=== PATIENT | female | born 1940 | race African-American/Black ===

== ENCOUNTER 2018-05-21 02:38 | Inpatient (IN) | payer MEDICARE, MEDICAID ==
[~2018-05-21] VITALS: Ht 152.4 cm; Wt 62.6 kg
[2018-05-21] VITALS (8 sets, daily range): BP systolic 146–194; BP diastolic 74–104
[~2018-05-21 02:38] MED LIST: ATOR10TA69; BENA40TA66 PO; BENADRYL; BENAZEPRIL; CLARITIN; COLACE; COR12 PO; COREG; DIAZ5TAB4; DOCU-138 PO; MECL-109 PO; MECL25TA3 PO; METO10TA3 PO; OMEP20CA4 PO; OXYC-23; PERCOCET; PREG50CA PO; PRO AIR; SORB PO; TRAM50TA94 PO
[2018-05-21] MEDS ORDERED: ALBUTEROL (0.083%) 2.5MG/3ML NEB HHN STA (03:02)
[2018-05-21 03:35] LABS: CHLORIDE 115 mEq/L (98-107)
[2018-05-21 03:44] LABS: BG BASE EXCESS -3.8 mmol/L (-2.0-2.0); BG CARBOXYHEMOGLOBIN 0.1 % (0.5-1.5); BG DEOXYHEMOGLOBIN 1.7 % (0.0-5.0); BG FRACTION INSPIRED OXYGEN 28; BG HCO3 ACT 20.3 mmol/L (22.0-26.0); BG METHEMOGLOBIN 0.1 % (0.0-1.5); BG OXYGEN SATURATION 98.3 % (92.0-98.5); BG OXYHEMOGLOBIN 98.1 % (94.0-97.0); BG PCO2 33.3 mmHg (35.0-45.0); BG PH 7.403 (7.350-7.450); BG PO2 119.4 mmHg (75.0-100.0); BG SAMPLE SITE RIGHT RADIAL; BG TOTAL HEMOGLOBIN 9.6 g/dL (12.0-18.0); BG VENT MODE NASAL CANNULA
[2018-05-21 03:52] LABS: HEMATOCRIT. 28.6 % (36.0-48.0); HEMOGLOBIN. 9.1 g/dL (12.0-16.0); MEAN CORPUSCULAR HEMOGLOBIN 29.8 pg (28.0-32.0); MEAN CORPUSCULAR VOLUME 94.1 fL (81.0-99.0); MEAN PLATELET VOLUME 9.5 fl (7.4-10.4); PLATELET 183 x1000/uL (130-400); RED BLOOD CELL COUNT 3.04 mill/uL (4.2-5.4); RED CELL DISTRIBUTION WIDTH 16.4 % (11.6-14.6)
[2018-05-21 04:10] LABS: PLATELET ESTIMATE NORMAL
[2018-05-21] MEDS ORDERED: ENALAPRIL 2.5MG/2ML VIAL 2ML IV ONE (04:15)
[2018-05-21] MEDS ORDERED: FUROSEMIDE 40MG/4ML VIAL IVP ONE (04:15)
[2018-05-21] MEDS ORDERED: IPRATROPIUM/ALBUTEROL 0.5-3(2.5)MG/3ML NEB HHN PRN (07:15)
[2018-05-21] MEDS: CLONIDINE 0.1MG TABLET PO PRN (07:38)
[2018-05-21] MEDS ORDERED: DIAZ10TA4 PO (08:06)
[2018-05-21] MEDS ORDERED: ONDA4TAB5 PO (08:12)
[2018-05-21] MEDS ORDERED: CHOL100044 GT (08:12)
[2018-05-21] MEDS ORDERED: CALC300T4 PO (08:12)
[2018-05-21] MEDS ORDERED: OXYC-515 PO (08:13)
[2018-05-21] MEDS ORDERED: LORA10TA7 PO (08:14)
[2018-05-21] MEDS ORDERED: DEXL60CA3 PO (08:15)
[2018-05-21] MEDS ORDERED: CALC1TAB17 PO (08:20)
[2018-05-21] MEDS: FUROSEMIDE 40MG/4ML VIAL IVP SCH (09:21)
[2018-05-21] MEDS: ENOXAPARIN 30MG/0.3ML SYR SUBCUT SCH (09:21)
[2018-05-21] MEDS: ASPIRIN 81MG TABLET PO SCH (12:00)
[2018-05-21] MEDS: ATORVASTATIN CALCIUM 10MG TABLET PO SCH (20:31)
[2018-05-21] MEDS: AMLODIPINE 2.5MG TABLET PO SCH (20:31)
[2018-05-21] MEDS: CARVEDILOL 12.5MG TABLET PO SCH (20:31)
[2018-05-21] MEDS: HYDROCODONE/ACETAMINOPHEN 5/325MG TABLET PO PRN (20:37)
[2018-05-22] VITALS (13 sets, daily range): BP systolic 91–175; BP diastolic 45–86
[2018-05-22] MEDS: CLONIDINE 0.1MG TABLET PO PRN (03:04)
[2018-05-22 06:07] LABS: BASOPHILS % 0.3 % (0.0-2.0); EOSINOPHILS % 0.8 % (0.0-5.0); HEMATOCRIT. 28.8 % (36.0-48.0); HEMOGLOBIN. 9.4 g/dL (12.0-16.0); MEAN CORPUSCULAR HEMOGLOBIN 30.2 pg (28.0-32.0); MEAN CORPUSCULAR VOLUME 92.7 fL (81.0-99.0); MEAN PLATELET VOLUME 9.5 fl (7.4-10.4); MONOCYTES % 12.8 % (2.0-8.0); NEUTROPHILS % 64.1 % (40.0-76.0); PLATELET 166 x1000/uL (130-400)
[2018-05-22] MEDS: PANTOPRAZOLE 40MG DR TABLET PO SCH (06:18)
[2018-05-22 06:31] LABS: PHOSPHORUS 3.4 mg/dL (2.5-4.9)
[2018-05-22] MEDS: ASPIRIN 81MG TABLET PO SCH (08:58)
[2018-05-22] MEDS: AMLODIPINE 2.5MG TABLET PO SCH ×2 (08:58→21:17)
[2018-05-22] MEDS: ENOXAPARIN 30MG/0.3ML SYR SUBCUT SCH (08:59)
[2018-05-22] MEDS: FUROSEMIDE 40MG/4ML VIAL IVP SCH (08:59)
[2018-05-22] MEDS: CARVEDILOL 12.5MG TABLET PO SCH ×2 (08:59→21:16)
[2018-05-22] MEDS: BENAZEPRIL 10MG TABLET PO SCH (10:54)
[2018-05-22] MEDS: POTASSIUM CHLORIDE 20MEQ TABLET SR PO SCH (10:54)
[2018-05-22] MEDS: HYDROCODONE/ACETAMINOPHEN 5/325MG TABLET PO PRN (20:07)
[2018-05-22] MEDS: ATORVASTATIN CALCIUM 10MG TABLET PO SCH (21:16)
[2018-05-23] VITALS (19 sets, daily range): BP systolic 73–135; BP diastolic 36–75
[2018-05-23] MEDS: HYDROCODONE/ACETAMINOPHEN 5/325MG TABLET PO PRN ×2 (01:58→10:41)
[2018-05-23] MEDS: PANTOPRAZOLE 40MG DR TABLET PO SCH (06:17)
[2018-05-23 06:50] LABS: HEMATOCRIT. 30.7 % (36.0-48.0); HEMOGLOBIN. 10.1 g/dL (12.0-16.0); MEAN CORPUSCULAR HEMOGLOBIN 30.4 pg (28.0-32.0); MEAN CORPUSCULAR VOLUME 92.6 fL (81.0-99.0); MEAN PLATELET VOLUME 9.8 fl (7.4-10.4); PLATELET 183 x1000/uL (130-400); RED BLOOD CELL COUNT 3.32 mill/uL (4.2-5.4); RED CELL DISTRIBUTION WIDTH 15.9 % (11.6-14.6)
[2018-05-23] MEDS: ASPIRIN 81MG TABLET PO SCH (08:23)
[2018-05-23] MEDS: POTASSIUM CHLORIDE 20MEQ TABLET SR PO SCH (08:24)
[2018-05-23] MEDS: BENAZEPRIL 10MG TABLET PO SCH ×2 (08:24→09:00)
[2018-05-23] MEDS: AMLODIPINE 2.5MG TABLET PO SCH (08:24)
[2018-05-23] MEDS: ENOXAPARIN 30MG/0.3ML SYR SUBCUT SCH (08:25)
[2018-05-23] MEDS: CARVEDILOL 12.5MG TABLET PO SCH (08:25)
[2018-05-23] MEDS: FUROSEMIDE 40MG/4ML VIAL IVP SCH (08:25)
[2018-05-23] MEDS ORDERED: SODIUM CHLORIDE 0.9% 250 ML IV SCH (11:30)
[2018-05-23] MEDS ORDERED: ACETAMINOPHEN 500MG TABLET PO PRN (14:45)
[2018-05-23] MEDS: SODIUM CHLORIDE 0.45% 1,000 ML IV SCH (16:08)
[2018-05-23 17:45] LABS: PLATELET ESTIMATE NORMAL
[2018-05-23] MEDS: ATORVASTATIN CALCIUM 10MG TABLET PO SCH (21:02)
[2018-05-24] VITALS (13 sets, daily range): BP systolic 98–143; BP diastolic 43–82
[2018-05-24] MEDS: SODIUM CHLORIDE 0.45% 1,000 ML IV SCH ×2 (04:16→16:48)
[2018-05-24] MEDS: PANTOPRAZOLE 40MG DR TABLET PO SCH (06:10)
[2018-05-24 07:21] LABS: HEMATOCRIT. 27.2 % (36.0-48.0); MEAN CORPUSCULAR HEMOGLOBIN 30.9 pg (28.0-32.0); MEAN CORPUSCULAR VOLUME 93.5 fL (81.0-99.0); MEAN PLATELET VOLUME 9.9 fl (7.4-10.4); PLATELET 144 x1000/uL (130-400); RED BLOOD CELL COUNT 2.91 mill/uL (4.2-5.4); RED CELL DISTRIBUTION WIDTH 15.7 % (11.6-14.6)
[2018-05-24 07:38] LABS: CHLORIDE 106 mEq/L (98-107)
[2018-05-24] MEDS: POTASSIUM CHLORIDE 20MEQ TABLET SR PO SCH (08:55)
[2018-05-24] MEDS: ENOXAPARIN 30MG/0.3ML SYR SUBCUT SCH (08:55)
[2018-05-24] MEDS: ASPIRIN 81MG TABLET PO SCH (08:55)
[2018-05-24 12:20] LABS: PLATELET ESTIMATE NORMAL
[2018-05-24] MEDS: OXYCODONE HCL/ACETAMINOPHEN 5/325MG TABLET PO PRN ×3 (12:46→23:18)
[2018-05-24] MEDS ORDERED: LAMOTRIGINE 25MG TABLET PO SCH (17:00)
[2018-05-24] MEDS: ATORVASTATIN CALCIUM 10MG TABLET PO SCH (21:35)
[2018-05-24] MEDS: CARVEDILOL 3.125 MG TABLET PO SCH (21:36)
[2018-05-25] VITALS (8 sets, daily range): BP systolic 101–160; BP diastolic 48–78
[2018-05-25] MEDS: SODIUM CHLORIDE 0.45% 1,000 ML IV SCH ×2 (01:46→20:40)
[2018-05-25 07:25] LABS: EOSINOPHILS % 6.2 % (0.0-5.0); HEMOGLOBIN. 9.4 g/dL (12.0-16.0); LYMPHOCYTES % 31.3 % (20.0-50.0); MEAN CORPUSCULAR HEMOGLOBIN 30.4 pg (28.0-32.0); MEAN CORPUSCULAR VOLUME 93.8 fL (81.0-99.0); MEAN PLATELET VOLUME 9.8 fl (7.4-10.4); MONOCYTES % 13.8 % (2.0-8.0); NEUTROPHILS % 46.7 % (40.0-76.0); PLATELET 154 x1000/uL (130-400)
[2018-05-25] MEDS: OXYCODONE HCL/ACETAMINOPHEN 5/325MG TABLET PO PRN ×3 (08:17→20:39)
[2018-05-25] MEDS: ASPIRIN 81MG TABLET PO SCH (08:22)
[2018-05-25] MEDS: ENOXAPARIN 30MG/0.3ML SYR SUBCUT SCH (08:22)
[2018-05-25] MEDS: AMLODIPINE 2.5MG TABLET PO SCH (08:22)
[2018-05-25] MEDS: FAMOTIDINE 20MG TABLET PO SCH (08:23)
[2018-05-25] MEDS: CARVEDILOL 3.125 MG TABLET PO SCH ×2 (08:23→20:39)
[2018-05-25] MEDS: BENAZEPRIL 5MG TABLET PO SCH (09:00)
[2018-05-25 11:04] LABS: CHLORIDE 111 mEq/L (98-107)
[2018-05-25] MEDS: ATORVASTATIN CALCIUM 10MG TABLET PO SCH (20:38)
[2018-05-26] VITALS (11 sets, daily range): BP systolic 110–160; BP diastolic 52–78
[2018-05-26] MEDS: OXYCODONE HCL/ACETAMINOPHEN 5/325MG TABLET PO PRN ×3 (02:26→14:01)
[2018-05-26 07:25] LABS: HEMATOCRIT. 27.6 % (36.0-48.0); HEMOGLOBIN. 8.8 g/dL (12.0-16.0); MEAN CORPUSCULAR HEMOGLOBIN 30.4 pg (28.0-32.0); MEAN CORPUSCULAR VOLUME 94.8 fL (81.0-99.0); PLATELET 153 x1000/uL (130-400); RED BLOOD CELL COUNT 2.91 mill/uL (4.2-5.4); RED CELL DISTRIBUTION WIDTH 16.1 % (11.6-14.6)
[2018-05-26] MEDS: FAMOTIDINE 20MG TABLET PO SCH (08:02)
[2018-05-26] MEDS: ENOXAPARIN 30MG/0.3ML SYR SUBCUT SCH (08:03)
[2018-05-26] MEDS: BENAZEPRIL 5MG TABLET PO SCH (08:03)
[2018-05-26] MEDS: ASPIRIN 81MG TABLET PO SCH (08:04)
[2018-05-26] MEDS: CARVEDILOL 3.125 MG TABLET PO SCH (08:10)
[2018-05-26] MEDS ORDERED: MAGNESIUM HYDROXIDE 400MG/5ML 30ML UDC PO NR (11:45)
[2018-05-26] MEDS ORDERED: NA PHOS,M-B/NA PHOS,DI-BA ENEMA 118ML PR NR (11:45)
[2018-05-26] MEDS: AMLODIPINE 2.5MG TABLET PO SCH (12:09)
[2018-05-26 16:23] LABS: PLATELET ESTIMATE NORMAL
== END 2018-05-26 17:44 | disposition home health service (06) | DRG 682 ==
LOC: ER 02:38 → 3WST 04:23 → EDBEDREQSVC 04:28 → EDBEDREQ 04:28 → EDBEDREQTM 04:28 → ENRESERV 06:38 → 3WST 07:10
PROVIDERS: ADMIT Internal Medicine; ATTEND Internal Medicine
PROC: 5A09357 Assistance with Respiratory Ventilation, Less than 24 Consecutive Hours, Continuous Positive Airway Pressure (ICD-10-PCS; principal; 2018-05-21)
DX: N17.9 Acute kidney failure, unspecified (principal); I50.23 Acute on chronic systolic (congestive) heart failure; E87.0 Hyperosmolality and hypernatremia; I13.0 Hypertensive heart and chronic kidney disease with heart failure and stage 1 through stage 4 chronic kidney disease, or unspecified chronic kidney disease; E46 Unspecified protein-calorie malnutrition; J98.11 Atelectasis; M19.90 Unspecified osteoarthritis, unspecified site; K21.9 Gastro-esophageal reflux disease without esophagitis; M54.5 Low back pain; M54.2 Cervicalgia; R53.81 Other malaise; I95.9 Hypotension, unspecified; E78.5 Hyperlipidemia, unspecified; D64.9 Anemia, unspecified; G89.29 Other chronic pain; M17.11 Unilateral primary osteoarthritis, right knee; N18.9 Chronic kidney disease, unspecified; Z87.891 Personal history of nicotine dependence; Z88.0 Allergy status to penicillin; Z88.6 Allergy status to analgesic agent; Z88.8 Allergy status to other drugs, medicaments and biological substances; Z79.899 Other long term (current) drug therapy; Z68.27 Body mass index [BMI] 27.0-27.9, adult
CPT/HCPCS: 36415; 36600; 71045; 76770; 80048; 82375; 82805; 83735; 83880; 84100; 84484; 85379; 93005; 93306; 93970; 94640; 96374; 96375; 97116; 97163; 97166; 99291; J1650; J1940; J3490; J7050; J7611; J7620

== ENCOUNTER 2019-10-30 18:00 | Inpatient (IN) | payer MEDICARE, MEDICAID ==
[~2019-10-30] VITALS: Ht 157.5 cm; Wt 68.5 kg
[2019-10-30 18:00] VITALS: BP 139/62
[~2019-10-30 18:00] MED LIST changes: +ALBUL MT; +AMLO5TAB88 MT; -BENA40TA66 PO; +BENA5TAB6 MT; -BENADRYL; -BENAZEPRIL; +BISA-81 MT; +CALC1TAB17 PO; +CALC300T4 PO; -CLARITIN; -COLACE; -COREG; +DIAZ10TA4 PO; -DIAZ5TAB4; -DOCU-138 PO; +FAMO20TA8 MT; +FLUT1DIS2 INH; -MECL-109 PO; -MECL25TA3 PO; -METO10TA3 PO; +OXYC-515 PO; -PERCOCET; -PREG50CA PO; -PRO AIR; -SORB PO; -TRAM50TA94 PO
[2019-10-30] MEDS ORDERED: ONDANSETRON HCL 4MG/2ML INJ IV PRN (18:30)
[2019-10-30] MEDS ORDERED: DIPHENHYDRAMINE 25MG CAPSULE PO PRN (18:30)
[2019-10-30 19:30] VITALS: BP 129/52
[2019-10-30 20:00] VITALS: BP 129/52
[2019-10-30] MEDS: TRAMADOL 50MG TABLET PO PRN (20:38)
[2019-10-30] MEDS: TEMAZEPAM 15MG CAPSULE PO PRN (22:19)
[2019-10-30] MEDS: ACETAMINOPHEN 325MG TABLET PO PRN (22:19)
[2019-10-30] MEDS: CARVEDILOL 6.25 MG TABLET PO SCH (22:20)
[2019-10-30] MEDS: ATORVASTATIN CALCIUM 10MG TABLET PO SCH (22:35)
[2019-10-31] MEDS: IPRATROPIUM/ALBUTEROL 0.5-3(2.5)MG/3ML NEB HHN SCH ×4 (00:13→20:06)
[2019-10-31 07:47] VITALS: BP 157/66
[2019-10-31 08:00] VITALS: BP 157/66
[2019-10-31] MEDS: THIAMINE HCL 100MG TABLET PO SCH (08:35)
[2019-10-31] MEDS: FAMOTIDINE 20MG TABLET PO SCH (08:36)
[2019-10-31] MEDS: CARVEDILOL 6.25 MG TABLET PO SCH ×2 (08:36→21:50)
[2019-10-31] MEDS: BENAZEPRIL 10MG TABLET PO SCH (08:36)
[2019-10-31] MEDS: AMLODIPINE 5MG TABLET PO SCH (08:36)
[2019-10-31] MEDS: TRAMADOL 50MG TABLET PO PRN (09:46)
[2019-10-31] MEDS ORDERED: INFLUENZA VIRUS VACCINE(AFLURIA) 0.5ML SYR IM ONE (12:00)
[2019-10-31] MEDS ORDERED: PNEUMOCOCCAL 23-VAL P-SAC VAC 0.5 ML IM ONE (12:00)
[2019-10-31] MEDS: NAPROXEN 375MG TABLET PO PRN (16:30)
[2019-10-31 20:00] VITALS: BP 124/85
[2019-10-31] MEDS: ACETAMINOPHEN 325MG TABLET PO PRN (21:51)
[2019-10-31] MEDS: ATORVASTATIN CALCIUM 10MG TABLET PO SCH (21:51)
[2019-10-31] MEDS: LACTULOSE 20G/30ML UDC PO SCH (21:51)
[2019-10-31] MEDS: TEMAZEPAM 15MG CAPSULE PO PRN (21:51)
[2019-11-01] MEDS: LACTULOSE 20G/30ML UDC PO SCH ×2 (04:00)
[2019-11-01] MEDS: IPRATROPIUM/ALBUTEROL 0.5-3(2.5)MG/3ML NEB HHN SCH ×2 (08:12→16:20)
[2019-11-01] MEDS: BENAZEPRIL 10MG TABLET PO SCH (08:18)
[2019-11-01] MEDS: THIAMINE HCL 100MG TABLET PO SCH (08:18)
[2019-11-01] MEDS: CARVEDILOL 6.25 MG TABLET PO SCH ×2 (08:18→21:18)
[2019-11-01] MEDS: AMLODIPINE 5MG TABLET PO SCH (08:18)
[2019-11-01] MEDS: NAPROXEN 375MG TABLET PO PRN (08:18)
[2019-11-01] MEDS: FAMOTIDINE 20MG TABLET PO SCH (08:18)
[2019-11-01 08:22] VITALS: BP 146/68
[2019-11-01] MEDS: TRAMADOL 50MG TABLET PO PRN (15:29)
[2019-11-01 20:00] VITALS: BP 128/75
[2019-11-01] MEDS: TEMAZEPAM 15MG CAPSULE PO PRN (21:17)
[2019-11-01] MEDS: ACETAMINOPHEN 325MG TABLET PO PRN (21:18)
[2019-11-01] MEDS: ATORVASTATIN CALCIUM 10MG TABLET PO SCH (21:19)
[2019-11-02] MEDS: IPRATROPIUM/ALBUTEROL 0.5-3(2.5)MG/3ML NEB HHN SCH ×3 (01:20→18:10)
[2019-11-02] MEDS: NAPROXEN 375MG TABLET PO PRN ×2 (02:09→08:17)
[2019-11-02 06:47] LABS: HEMATOCRIT. 25.5 % (36.0-48.0); HEMOGLOBIN. 8.7 g/dL (12.0-16.0); MEAN CORPUSCULAR VOLUME 94.3 fL (81.0-99.0); MEAN PLATELET VOLUME 9.6 fl (7.4-10.4); PLATELET 156 x1000/uL (130-400); RED BLOOD CELL COUNT 2.71 mill/uL (4.2-5.4); RED CELL DISTRIBUTION WIDTH 15.8 % (11.6-14.6)
[2019-11-02 08:00] VITALS: BP 164/76
[2019-11-02] MEDS: THIAMINE HCL 100MG TABLET PO SCH (08:18)
[2019-11-02] MEDS: AMLODIPINE 5MG TABLET PO SCH (08:18)
[2019-11-02] MEDS: BENAZEPRIL 10MG TABLET PO SCH (08:18)
[2019-11-02] MEDS: FAMOTIDINE 20MG TABLET PO SCH (08:18)
[2019-11-02] MEDS: CARVEDILOL 6.25 MG TABLET PO SCH ×2 (08:19→21:43)
[2019-11-02] MEDS: BENAZEPRIL 5MG TABLET PO SCH ×2 (08:59→22:47)
[2019-11-02 13:51] LABS: NUCLEATED RED BLOOD CELLS 1 /100 WBC
[2019-11-02 13:52] LABS: PLATELET ESTIMATE NORMAL
[2019-11-02] MEDS: ACETAMINOPHEN 325MG TABLET PO PRN (18:27)
[2019-11-02 20:00] VITALS: BP 124/62
[2019-11-02] MEDS: ATORVASTATIN CALCIUM 10MG TABLET PO SCH (21:42)
[2019-11-02] MEDS: TRAMADOL 50MG TABLET PO PRN (21:43)
[2019-11-02] MEDS: TEMAZEPAM 15MG CAPSULE PO PRN (22:48)
[2019-11-03] MEDS: NAPROXEN 375MG TABLET PO PRN ×3 (02:12→20:19)
[2019-11-03] MEDS: ACETAMINOPHEN 325MG TABLET PO PRN (06:41)
[2019-11-03 08:00] VITALS: BP 123/63
[2019-11-03] MEDS: AMLODIPINE 5MG TABLET PO SCH (08:55)
[2019-11-03] MEDS: BENAZEPRIL 5MG TABLET PO SCH ×2 (08:56→20:01)
[2019-11-03] MEDS: THIAMINE HCL 100MG TABLET PO SCH (08:56)
[2019-11-03] MEDS: CARVEDILOL 6.25 MG TABLET PO SCH ×2 (08:56→20:02)
[2019-11-03] MEDS: FAMOTIDINE 20MG TABLET PO SCH (08:56)
[2019-11-03] MEDS: IPRATROPIUM/ALBUTEROL 0.5-3(2.5)MG/3ML NEB HHN SCH ×2 (09:40→22:11)
[2019-11-03 20:00] VITALS: BP 149/74
[2019-11-03] MEDS: ATORVASTATIN CALCIUM 10MG TABLET PO SCH (20:01)
[2019-11-03] MEDS: TEMAZEPAM 15MG CAPSULE PO PRN (21:27)
[2019-11-03 23:15] VITALS: BP 119/50
[2019-11-04] MEDS: NAPROXEN 375MG TABLET PO PRN ×2 (05:06→12:34)
[2019-11-04 08:00] VITALS: BP 126/64
[2019-11-04] MEDS: FAMOTIDINE 20MG TABLET PO SCH (08:49)
[2019-11-04] MEDS: BENAZEPRIL 5MG TABLET PO SCH (08:49)
[2019-11-04] MEDS: AMLODIPINE 5MG TABLET PO SCH (08:50)
[2019-11-04] MEDS: THIAMINE HCL 100MG TABLET PO SCH (08:50)
[2019-11-04] MEDS: CARVEDILOL 6.25 MG TABLET PO SCH (08:50)
[2019-11-04 09:35] VITALS: BP 126/64
== END 2019-11-04 14:50 | disposition home or self-care (01) | DRG 70 ==
PROVIDERS: ADMIT Psychiatry & Neurology Neurology; ATTEND Internal Medicine
DX: G93.41 Metabolic encephalopathy (principal); J96.90 Respiratory failure, unspecified, unspecified whether with hypoxia or hypercapnia; I50.32 Chronic diastolic (congestive) heart failure; G93.89 Other specified disorders of brain; I11.0 Hypertensive heart disease with heart failure; K21.9 Gastro-esophageal reflux disease without esophagitis; D64.9 Anemia, unspecified; E78.00 Pure hypercholesterolemia, unspecified; M19.90 Unspecified osteoarthritis, unspecified site; G89.4 Chronic pain syndrome; R26.89 Other abnormalities of gait and mobility; N28.9 Disorder of kidney and ureter, unspecified; M25.50 Pain in unspecified joint; Z60.2 Problems related to living alone; K59.00 Constipation, unspecified; Z79.891 Long term (current) use of opiate analgesic; Z79.899 Other long term (current) drug therapy; Z88.0 Allergy status to penicillin; Z88.8 Allergy status to other drugs, medicaments and biological substances; Z88.6 Allergy status to analgesic agent
CPT/HCPCS: 36415; 80048; 85025; 90686; 90732; 92523; 94640; 97110; 97116; 97162; 97166; 97530; 97535; J2405; Q0163

== ENCOUNTER 2020-04-02 03:39 | Emergency (ER) | payer MEDICARE, MEDICAID ==
[~2020-04-02] VITALS: Ht 152.4 cm; Wt 63.0 kg
[~2020-04-02 03:39] MED LIST changes: -CALC300T4 PO; -DIAZ10TA4 PO; -FAMO20TA8 MT; -FLUT1DIS2 INH; -OXYC-23; -OXYC-515 PO
[2020-04-02 04:11] VITALS: BP 176/77
[2020-04-02] MEDS ORDERED: HYDROCODONE/ACETAMINOPHEN 10/325MG TABLET PO ONE (04:15)
[2020-04-02] MEDS ORDERED: DIPHENHYDRAMINE 25MG CAPSULE PO ONE (04:30)
[2020-04-02] MEDS ORDERED: IBUPROFEN 600MG TABLET PO ONE (04:30)
== END 2020-04-02 05:21 | disposition home or self-care (01) ==
LOC: ER 03:39
DX: G89.29 Other chronic pain (principal); M25.562 Pain in left knee; M25.511 Pain in right shoulder; I10 Essential (primary) hypertension; J44.9 Chronic obstructive pulmonary disease, unspecified; Z88.0 Allergy status to penicillin; Z88.8 Allergy status to other drugs, medicaments and biological substances; Z88.6 Allergy status to analgesic agent; Z79.899 Other long term (current) drug therapy
CPT/HCPCS: 93005; 99283

== ENCOUNTER 2020-04-02 18:32 | Inpatient (IN) | payer MEDICARE, MEDICAID ==
[~2020-04-02] VITALS: Ht 152.4 cm; Wt 68.0 kg
[2020-04-02] MEDS ORDERED: FAMOTIDINE 20MG/2ML VIAL IV STA (21:59)
[2020-04-02] MEDS ORDERED: ONDANSETRON HCL 4MG/2ML INJ IV STA (21:59)
[2020-04-02] MEDS ORDERED: SODIUM CHLORIDE 0.9% 1,000 ML IV ONE (21:59)
[2020-04-02] MEDS ORDERED: METRONIDAZOLE 500 MG PREMIX 100 ML IV ONE (23:45)
[2020-04-02] MEDS ORDERED: LEVOFLOXACIN 750MG PREMIX 150 ML IV ONE (23:45)
[2020-04-03 00:39] LABS: HEMATOCRIT. 24.8 % (36.0-48.0); HEMOGLOBIN. 8.1 g/dL (12.0-16.0); MEAN CORPUSCULAR HEMOGLOBIN 32.4 pg (28.0-32.0); MEAN CORPUSCULAR VOLUME 98.9 fL (81.0-99.0); MEAN PLATELET VOLUME 9.6 fl (7.4-10.4); PLATELET 116 x1000/uL (130-400); RED BLOOD CELL COUNT 2.51 mill/uL (4.2-5.4); RED CELL DISTRIBUTION WIDTH 18.3 % (11.6-14.6)
[2020-04-03 00:40] LABS: CHLORIDE 113 mEq/L (98-107)
[2020-04-03 00:45] LABS: CLARITY URINE CLEAR (CLEAR); COLOR URINE YELLOW (YELLOW); KETONES URINE NEGATIVE (NEGATIVE); LEUKOCYTE ESTERASE URINE NEGATIVE (NEGATIVE); NITRITE URINE NEGATIVE (NEGATIVE); OCCULT BLOOD URINE NEGATIVE (NEGATIVE); PH URINE 6.5 (4.5-8.0); PROTEIN URINE NEGATIVE (NEGATIVE); SPECIFIC GRAVITY URINE 1.017 (1.005-1.030); UROBILINOGEN URINE 0.2 E.U./dL (0.2-1.0)
[2020-04-03 00:48] LABS: *AMPHETAMINES SCREEN URINE PRESUMTIVE POSITIVE (NEGATIVE); *BARBITURATES SCREEN URINE NEGATIVE (NEGATIVE); *BENZODIAZEPINES SCREEN URINE PRESUMTIVE POSITIVE (NEGATIVE); *COCAINE SCREEN URINE NEGATIVE (NEGATIVE); METHADONE URINE SCREEN NEGATIVE (NEGATIVE); OPIATES URINE SCREEN PRESUMTIVE POSITIVE (NEGATIVE)
[2020-04-03 00:49] LABS: CANNABINOID URINE SCREEN PRESUMTIVE POSITIVE (NEGATIVE); PHENCYCLIDINE URINE SCREEN NEGATIVE (NEGATIVE)
[2020-04-03] MEDS ORDERED: MORPHINE SULFATE 2 MG/ML CPJ (NOT FOR IM USE) IV ONE (01:30)
[2020-04-03 02:12] LABS: INR 1.1; PROTHROMBIN TIME 11.8 sec (9.6-11.0)
[2020-04-03 02:45] LABS: PLATELET ESTIMATE DECREASED
[2020-04-03 05:08] VITALS: BP 181/64
[2020-04-03] MEDS: DEXT 5%/0.45% NACL 1000ML 1,000 ML IV SCH ×2 (06:04→18:27)
[2020-04-03] MEDS: HYDROMORPHONE HCL/PF 2MG/ML CPJ IV PRN ×3 (06:10→19:52)
[2020-04-03 08:00] VITALS: BP 160/71
[2020-04-03] MEDS ORDERED: LACTULOSE 20G/30ML UDC PO SCH (09:00)
[2020-04-03] MEDS: METRONIDAZOLE 500 MG PREMIX 100 ML IV SCH ×2 (09:10→18:26)
[2020-04-03] MEDS: PANTOPRAZOLE SODIUM 40 MG/VIAL IV SCH (09:10)
[2020-04-03] MEDS: BENAZEPRIL 5MG TABLET PO SCH (09:11)
[2020-04-03] MEDS: AMLODIPINE 5MG TABLET PO SCH (09:11)
[2020-04-03] MEDS: CARVEDILOL 12.5MG TABLET PO SCH ×2 (09:11→20:01)
[2020-04-03] MEDS ORDERED: DOCUSATE SODIUM 100MG CAPSULE PO PRN (10:00)
[2020-04-03] MEDS ORDERED: CLONIDINE 0.1MG TABLET PO PRN (10:00)
[2020-04-03] MEDS ORDERED: NA PHOS,M-B/NA PHOS,DI-BA ENEMA 118ML PR PRN (10:00)
[2020-04-03 12:00] VITALS: BP 140/89
[2020-04-03 14:00] LABS: TOTAL IRON BINDING CAPACITY 274 ug/dL (250-450)
[2020-04-03 16:00] VITALS: BP 118/49
[2020-04-03] MEDS: DOCUSATE SODIUM 250MG CAPSULE PO SCH (18:28)
[2020-04-03 20:00] VITALS: BP 140/59
[2020-04-03] MEDS ORDERED: MAGNESIUM CITRATE 300ML SOLUTION PO SCH (20:00)
[2020-04-03] MEDS: ZOLPIDEM TARTRATE 5MG TABLET PO PRN (20:56)
[2020-04-04] VITALS (10 sets, daily range): BP systolic 92–139; BP diastolic 49–75
[2020-04-04] MEDS: HYDROMORPHONE HCL/PF 2MG/ML CPJ IV PRN ×4 (00:24→21:44)
[2020-04-04] MEDS: METRONIDAZOLE 500 MG PREMIX 100 ML IV SCH ×3 (01:09→19:06)
[2020-04-04] MEDS ORDERED: LEVOFLOXACIN 500MG PREMIX 100 ML IV SCH (03:00)
[2020-04-04] MEDS: DEXT 5%/0.45% NACL 1000ML 1,000 ML IV SCH ×2 (04:47→19:06)
[2020-04-04 07:03] LABS: CHLORIDE 110 mEq/L (98-107)
[2020-04-04 07:19] LABS: MEAN CORPUSCULAR HEMOGLOBIN 32.3 pg (28.0-32.0); MEAN CORPUSCULAR VOLUME 99.7 fL (81.0-99.0); MEAN PLATELET VOLUME 10.6 fl (7.4-10.4); PLATELET 102 x1000/uL (130-400); RED BLOOD CELL COUNT 2.08 mill/uL (4.2-5.4); RED CELL DISTRIBUTION WIDTH 17.9 % (11.6-14.6)
[2020-04-04 07:29] LABS: HEMATOCRIT. 20.8 % (36.0-48.0); HEMOGLOBIN. 6.7 g/dL (12.0-16.0)
[2020-04-04] MEDS: CARVEDILOL 12.5MG TABLET PO SCH ×2 (09:36→21:38)
[2020-04-04] MEDS: DOCUSATE SODIUM 250MG CAPSULE PO SCH ×2 (09:36→17:15)
[2020-04-04] MEDS: PANTOPRAZOLE SODIUM 40 MG/VIAL IV SCH (09:37)
[2020-04-04] MEDS: BENAZEPRIL 5MG TABLET PO SCH (09:37)
[2020-04-04] MEDS: AMLODIPINE 5MG TABLET PO SCH (09:37)
[2020-04-04 09:47] LABS: PLATELET ESTIMATE DECREASED
[2020-04-04] MEDS: IPRATROPIUM/ALBUTEROL 0.5-3(2.5)MG/3ML NEB HHN PRN (12:58)
[2020-04-04] MEDS ORDERED: SODIUM BICARBONATE 4% (2.4MEQ) 5ML VIAL IV ONE (14:03)
[2020-04-04] MEDS ORDERED: LIDOCAINE HCL 1% 20ML VIAL (Pyxis) INJ ONE (14:03)
[2020-04-04] MEDS: SUCRALFATE 1G TABLET PO SCH ×2 (17:15→21:36)
[2020-04-04] MEDS ORDERED: LEVOFLOXACIN 250MG PREMIX 50 ML IV SCH (21:00)
[2020-04-04] MEDS: ZOLPIDEM TARTRATE 5MG TABLET PO PRN (21:36)
[2020-04-04 23:23] LABS: HEMATOCRIT 27.3 % (36.0-48.0)
[2020-04-05] VITALS: BP 122/69
[2020-04-05] MEDS: METRONIDAZOLE 500 MG PREMIX 100 ML IV SCH ×2 (01:03→08:45)
[2020-04-05] MEDS: HYDROMORPHONE HCL/PF 2MG/ML CPJ IV PRN ×3 (01:46→20:33)
[2020-04-05 04:00] VITALS: BP 144/67
[2020-04-05] MEDS: SUCRALFATE 1G TABLET PO SCH ×4 (06:43→20:31)
[2020-04-05] MEDS: DEXT 5%/0.45% NACL 1000ML 1,000 ML IV SCH ×2 (06:45→20:31)
[2020-04-05 07:14] LABS: HEMOGLOBIN. 8.2 g/dL (12.0-16.0); MEAN CORPUSCULAR HEMOGLOBIN 31.2 pg (28.0-32.0); MEAN CORPUSCULAR VOLUME 94.7 fL (81.0-99.0); MEAN PLATELET VOLUME 10.1 fl (7.4-10.4); PLATELET 91 x1000/uL (130-400); RED BLOOD CELL COUNT 2.64 mill/uL (4.2-5.4); RED CELL DISTRIBUTION WIDTH 19.1 % (11.6-14.6)
[2020-04-05 07:52] VITALS: BP 156/71
[2020-04-05] MEDS: CARVEDILOL 12.5MG TABLET PO SCH ×2 (08:44→20:32)
[2020-04-05] MEDS: DOCUSATE SODIUM 250MG CAPSULE PO SCH ×2 (08:44→17:01)
[2020-04-05] MEDS: PANTOPRAZOLE SODIUM 40 MG/VIAL IV SCH (08:45)
[2020-04-05] MEDS: BENAZEPRIL 5MG TABLET PO SCH (08:45)
[2020-04-05] MEDS: AMLODIPINE 5MG TABLET PO SCH (08:45)
[2020-04-05 11:43] LABS: PLATELET ESTIMATE DECREASED
[2020-04-05 12:00] VITALS: BP 128/53
[2020-04-05] MEDS: METRONIDAZOLE 500MG TABLET PO SCH ×2 (15:28→21:56)
[2020-04-05 16:00] VITALS: BP 132/56
[2020-04-05] MEDS: LEVOFLOXACIN 250MG TABLET PO SCH (19:26)
[2020-04-05 20:00] VITALS: BP 141/63
[2020-04-05] MEDS: ZOLPIDEM TARTRATE 5MG TABLET PO PRN (21:56)
[2020-04-06] VITALS: BP 133/62
[2020-04-06] MEDS: HYDROMORPHONE HCL/PF 2MG/ML CPJ IV PRN ×3 (02:12→16:55)
[2020-04-06 04:00] VITALS: BP 123/58
[2020-04-06] MEDS: METRONIDAZOLE 500MG TABLET PO SCH ×3 (06:03→20:27)
[2020-04-06] MEDS: SUCRALFATE 1G TABLET PO SCH ×4 (06:03→20:28)
[2020-04-06 06:45] LABS: HEMATOCRIT. 23.8 % (36.0-48.0); MEAN CORPUSCULAR HEMOGLOBIN 31.9 pg (28.0-32.0); MEAN CORPUSCULAR VOLUME 94.7 fL (81.0-99.0); PLATELET 95 x1000/uL (130-400); RED BLOOD CELL COUNT 2.51 mill/uL (4.2-5.4); RED CELL DISTRIBUTION WIDTH 18.5 % (11.6-14.6)
[2020-04-06 08:00] VITALS: BP 161/71
[2020-04-06] MEDS: DOCUSATE SODIUM 250MG CAPSULE PO SCH ×2 (08:57→16:49)
[2020-04-06] MEDS: AMLODIPINE 5MG TABLET PO SCH (08:58)
[2020-04-06] MEDS: CARVEDILOL 12.5MG TABLET PO SCH ×2 (08:58→20:28)
[2020-04-06] MEDS: BENAZEPRIL 5MG TABLET PO SCH (08:58)
[2020-04-06] MEDS: DEXT 5%/0.45% NACL 1000ML 1,000 ML IV SCH (09:01)
[2020-04-06] MEDS: PANTOPRAZOLE SODIUM 40 MG/VIAL IV SCH (09:01)
[2020-04-06] MEDS: LEVOFLOXACIN 250MG TABLET PO SCH (10:53)
[2020-04-06 12:00] VITALS: BP 144/66
[2020-04-06] MEDS: DEXT 5%/0.45% NACL KCL 20MEQ/L 1,000 ML IV SCH (12:18)
[2020-04-06 16:00] VITALS: BP 157/74
[2020-04-06 20:00] VITALS: BP 157/76
[2020-04-06] MEDS: ACETAMINOPHEN 325MG TABLET PO PRN (20:28)
[2020-04-06] MEDS: ZOLPIDEM TARTRATE 5MG TABLET PO PRN (20:28)
[2020-04-06 22:14] LABS: PLATELET ESTIMATE DECREASED
[2020-04-07] VITALS: BP 117/62
[2020-04-07] MEDS: DEXT 5%/0.45% NACL KCL 20MEQ/L 1,000 ML IV SCH ×2 (02:35→15:24)
[2020-04-07] MEDS: HYDROMORPHONE HCL/PF 2MG/ML CPJ IV PRN ×3 (02:36→20:51)
[2020-04-07 04:00] VITALS: BP 137/56
[2020-04-07] MEDS: METRONIDAZOLE 500MG TABLET PO SCH ×3 (05:23→20:50)
[2020-04-07] MEDS: SUCRALFATE 1G TABLET PO SCH ×4 (05:24→20:50)
[2020-04-07 06:45] LABS: HEMATOCRIT. 24.9 % (36.0-48.0); HEMOGLOBIN. 8.2 g/dL (12.0-16.0); MEAN CORPUSCULAR VOLUME 96.4 fL (81.0-99.0); MEAN PLATELET VOLUME 10.3 fl (7.4-10.4); PLATELET 107 x1000/uL (130-400); RED BLOOD CELL COUNT 2.58 mill/uL (4.2-5.4)
[2020-04-07 08:00] VITALS: BP 181/85
[2020-04-07] MEDS: PANTOPRAZOLE SODIUM 40 MG/VIAL IV SCH (08:55)
[2020-04-07] MEDS: DOCUSATE SODIUM 250MG CAPSULE PO SCH ×2 (08:56→16:02)
[2020-04-07] MEDS: BENAZEPRIL 5MG TABLET PO SCH (08:56)
[2020-04-07] MEDS: CARVEDILOL 12.5MG TABLET PO SCH ×2 (08:56→20:50)
[2020-04-07] MEDS: AMLODIPINE 5MG TABLET PO SCH (08:57)
[2020-04-07] MEDS: IPRATROPIUM/ALBUTEROL 0.5-3(2.5)MG/3ML NEB HHN PRN (10:36)
[2020-04-07] MEDS: LEVOFLOXACIN 250MG TABLET PO SCH (11:52)
[2020-04-07 12:00] VITALS: BP_SYST 181; BP_DIAS 85; BP_DIAS 98
[2020-04-07 12:42] LABS: NUCLEATED RED BLOOD CELLS 1 /100 WBC; PLATELET ESTIMATE DECREASED
[2020-04-07 16:00] VITALS: BP 161/48
[2020-04-07 20:00] VITALS: BP 161/65
[2020-04-07] MEDS: ACETAMINOPHEN 325MG TABLET PO PRN (20:50)
[2020-04-07] MEDS: ZOLPIDEM TARTRATE 5MG TABLET PO PRN (23:10)
[2020-04-08] VITALS: BP 145/73
[2020-04-08 04:00] VITALS: BP 147/78
[2020-04-08] MEDS: DEXT 5%/0.45% NACL KCL 20MEQ/L 1,000 ML IV SCH (04:08)
[2020-04-08] MEDS: SUCRALFATE 1G TABLET PO SCH ×2 (04:55→11:49)
[2020-04-08] MEDS: HYDROMORPHONE HCL/PF 2MG/ML CPJ IV PRN (04:56)
[2020-04-08 06:49] LABS: HEMATOCRIT. 24.6 % (36.0-48.0); HEMOGLOBIN. 8.2 g/dL (12.0-16.0); MEAN CORPUSCULAR HEMOGLOBIN 31.4 pg (28.0-32.0); MEAN CORPUSCULAR VOLUME 94.5 fL (81.0-99.0); MEAN PLATELET VOLUME 10.1 fl (7.4-10.4); PLATELET 107 x1000/uL (130-400); RED CELL DISTRIBUTION WIDTH 18.1 % (11.6-14.6)
[2020-04-08 07:17] LABS: CHLORIDE 113 mEq/L (98-107)
[2020-04-08 08:00] VITALS: BP 156/68
[2020-04-08] MEDS: DOCUSATE SODIUM 250MG CAPSULE PO SCH (08:13)
[2020-04-08] MEDS: BENAZEPRIL 5MG TABLET PO SCH (08:13)
[2020-04-08] MEDS: AMLODIPINE 5MG TABLET PO SCH (08:13)
[2020-04-08] MEDS: CARVEDILOL 12.5MG TABLET PO SCH (08:14)
[2020-04-08] MEDS ORDERED: FAMOTIDINE 20MG/2ML VIAL IV SCH (09:00)
[2020-04-08] MEDS ORDERED: POTASSIUM CHLORIDE 20MEQ TABLET SR PO SCH (09:00)
[2020-04-08] MEDS ORDERED: HYDROCODONE/ACETAMINOPHEN 5/325MG TABLET PO PRN (10:00)
[2020-04-08] MEDS ORDERED: HYDROMORPHONE HCL 2MG TABLET PO PRN (10:15)
[2020-04-08 10:59] LABS: PLATELET ESTIMATE SLIGHTLY DECREASED
[2020-04-08 12:00] VITALS: BP 151/82
[2020-04-08 14:36] VITALS: BP 151/80
== END 2020-04-08 15:44 | disposition home or self-care (01) | DRG 70 ==
LOC: ER 18:32 → 5WST 23:45 → EDBEDREQTM 23:49 → EDBEDREQ 23:49 → ENRESERV 04-03 03:13
PROVIDERS: ADMIT Internal Medicine; ATTEND Internal Medicine
PROC: 02HV33Z Insertion of Infusion Device into Superior Vena Cava, Percutaneous Approach (ICD-10-PCS; principal; 2020-04-04)
PROC: B518ZZA Fluoroscopy of Superior Vena Cava, Guidance (ICD-10-PCS; 2020-04-04)
PROC: B548ZZA Ultrasonography of Superior Vena Cava, Guidance (ICD-10-PCS; 2020-04-04)
PROC: 30233N1 Transfusion of Nonautologous Red Blood Cells into Peripheral Vein, Percutaneous Approach (ICD-10-PCS; 2020-04-04)
DX: G93.41 Metabolic encephalopathy (principal); N17.0 Acute kidney failure with tubular necrosis; K52.9 Noninfective gastroenteritis and colitis, unspecified; M48.02 Spinal stenosis, cervical region; K59.09 Other constipation; N18.9 Chronic kidney disease, unspecified; I12.9 Hypertensive chronic kidney disease with stage 1 through stage 4 chronic kidney disease, or unspecified chronic kidney disease; J44.9 Chronic obstructive pulmonary disease, unspecified; M54.40 Lumbago with sciatica, unspecified side; E78.00 Pure hypercholesterolemia, unspecified; K21.9 Gastro-esophageal reflux disease without esophagitis; E78.5 Hyperlipidemia, unspecified; G47.00 Insomnia, unspecified; R73.03 Prediabetes; G89.29 Other chronic pain; F12.90 Cannabis use, unspecified, uncomplicated; M47.892 Other spondylosis, cervical region; K44.9 Diaphragmatic hernia without obstruction or gangrene; D50.9 Iron deficiency anemia, unspecified; Z79.82 Long term (current) use of aspirin; Z88.6 Allergy status to analgesic agent; Z88.0 Allergy status to penicillin; Z88.8 Allergy status to other drugs, medicaments and biological substances; Z79.899 Other long term (current) drug therapy; Z90.711 Acquired absence of uterus with remaining cervical stump
CPT/HCPCS: 36415; 36573; 71045; 74018; 74176; 80048; 80053; 80305; 81003; 82270; 83036; 83540; 83550; 83605; 83735; 84100; 84484; 85014; 85018; 85025; 86850; 86900; 86920; 93005; 93970; 94640; 97162; 99285; C1725; C1892; C9113; J1170; J1956; J2270; J2405; J3490; J7030; P9016

== ENCOUNTER 2020-10-18 08:25 | Inpatient (IN) | payer MEDICARE, MEDICAID ==
[2020-10-18] VITALS (23 sets, daily range): BP systolic 71–120; BP diastolic 33–71
[~2020-10-18] VITALS: Ht 154.9 cm; Wt 65.9 kg
[2020-10-18] MEDS ORDERED: ACETAMINOPHEN 650MG SUPP PR STA (08:52)
[2020-10-18] MEDS ORDERED: VANCOMYCIN 1 G PREMIX 200 ML IV ONE (09:00)
[2020-10-18] MEDS ORDERED: LEVOFLOXACIN 750MG PREMIX 150 ML IV ONE (09:00)
[2020-10-18] MEDS ORDERED: SODIUM CHLORIDE 0.9% 1000ML BAG (SEPSIS BOLUS) IV ONE (09:00)
[2020-10-18 09:28] LABS: CHLORIDE 107 mEq/L (98-107)
[2020-10-18 09:29] LABS: CLARITY URINE CLOUDY (CLEAR); COLOR URINE YELLOW (YELLOW); KETONES URINE TRACE (NEGATIVE); LEUKOCYTE ESTERASE URINE NEGATIVE (NEGATIVE); NITRITE URINE NEGATIVE (NEGATIVE); OCCULT BLOOD URINE 1+ (NEGATIVE); PROTEIN URINE 2+ (NEGATIVE); SPECIFIC GRAVITY URINE 1.025 (1.005-1.030); UROBILINOGEN URINE 0.2 E.U./dL (0.2-1.0)
[2020-10-18 09:37] LABS: HEMATOCRIT. 31.4 % (36.0-48.0); HEMOGLOBIN. 10.2 g/dL (12.0-16.0); INR 1.3; MEAN CORPUSCULAR HEMOGLOBIN 30.9 pg (28.0-32.0); MEAN CORPUSCULAR VOLUME 94.9 fL (81.0-99.0); PROTHROMBIN TIME 13.5 sec (9.6-11.0); RED BLOOD CELL COUNT 3.31 mill/uL (4.2-5.4); RED CELL DISTRIBUTION WIDTH 16.5 % (11.6-14.6)
[2020-10-18 10:59] LABS: PLATELET ESTIMATE MARKEDLY DECREASED
[2020-10-18 11:01] LABS: PLATELET 34 x1000/uL (130-400)
[2020-10-18 11:02] LABS: MEAN PLATELET VOLUME 10.1 fl (7.4-10.4)
[2020-10-18] MEDS ORDERED: DOCUSATE SODIUM 100MG CAPSULE PO PRN (11:30)
[2020-10-18] MEDS ORDERED: IPRATROPIUM/ALBUTEROL 0.5-3(2.5)MG/3ML NEB NEB PRN (11:30)
[2020-10-18] MEDS ORDERED: GUAIFENESIN 200MG/10ML SUGAR FREE UDC PO PRN (11:30)
[2020-10-18] MEDS ORDERED: ONDANSETRON HCL 4MG/2ML INJ IV PRN (11:30)
[2020-10-18] MEDS ORDERED: DEXT 5%/0.45% NACL 1000ML 1,000 ML IV SCH (11:30)
[2020-10-18] MEDS ORDERED: AZTREONAM 1 G in DEXTROSE 5% WATER 50 ML IV SCH (16:00)
[2020-10-18] MEDS: SODIUM CHLORIDE 0.9% 1,000 ML IV SCH (18:27)
[2020-10-18] MEDS ORDERED: NOREPINEPHRINE 32 MG in DEXT 5% WATER 218 ML IV PRN (20:30)
[2020-10-18] MEDS ORDERED: SODIUM CHLORIDE 0.9% 500 ML IV ONE (20:30)
[2020-10-18] MEDS: ATORVASTATIN CALCIUM 10MG TABLET PO SCH (20:44)
[2020-10-19] VITALS (44 sets, daily range): BP systolic 92–163; BP diastolic 41–110
[2020-10-19] MEDS: SODIUM CHLORIDE 0.9% 1,000 ML IV SCH ×3 (02:23→19:55)
[2020-10-19] MEDS: ACETAMINOPHEN 325MG TABLET PO PRN ×2 (05:49→18:34)
[2020-10-19 05:50] LABS: HEMATOCRIT. 22.1 % (36.0-48.0); HEMOGLOBIN. 7.1 g/dL (12.0-16.0); MEAN CORPUSCULAR HEMOGLOBIN 30.3 pg (28.0-32.0); MEAN CORPUSCULAR VOLUME 94.4 fL (81.0-99.0); MEAN PLATELET VOLUME 9.5 fl (7.4-10.4); RED BLOOD CELL COUNT 2.34 mill/uL (4.2-5.4)
[2020-10-19 06:50] LABS: PLATELET 24 x1000/uL (130-400)
[2020-10-19] MEDS ORDERED: VANCOMYCIN 1 G PREMIX 200 ML IV SCH (10:00)
[2020-10-19 12:19] LABS: PLATELET ESTIMATE MARKEDLY DECREASED
[2020-10-19] MEDS: PANTOPRAZOLE SODIUM 40 MG/VIAL IV SCH (14:00)
[2020-10-19] MEDS: AZTREONAM 1 G in DEXTROSE 5% WATER 50 ML IV SCH (17:06)
[2020-10-19] MEDS: ATORVASTATIN CALCIUM 10MG TABLET PO SCH (21:36)
[2020-10-20] VITALS: BP 125/87
[2020-10-20 04:00] VITALS: BP 131/89
[2020-10-20] MEDS: AZTREONAM 1 G in DEXTROSE 5% WATER 50 ML IV SCH ×2 (05:56→17:33)
[2020-10-20] MEDS: SODIUM CHLORIDE 0.9% 1,000 ML IV SCH ×2 (05:57→17:34)
[2020-10-20 06:31] LABS: HEMATOCRIT. 22.9 % (36.0-48.0); HEMOGLOBIN. 7.7 g/dL (12.0-16.0); MEAN CORPUSCULAR HEMOGLOBIN 31.5 pg (28.0-32.0); MEAN CORPUSCULAR VOLUME 93.6 fL (81.0-99.0); MEAN PLATELET VOLUME 8.9 fl (7.4-10.4); RED BLOOD CELL COUNT 2.45 mill/uL (4.2-5.4)
[2020-10-20 07:56] LABS: PLATELET 30 x1000/uL (130-400)
[2020-10-20 08:00] VITALS: BP 137/50
[2020-10-20] MEDS: PANTOPRAZOLE SODIUM 40 MG/VIAL IV SCH (08:35)
[2020-10-20] MEDS ORDERED: LEVOFLOXACIN 500MG PREMIX 100 ML IV SCH ×2 (09:00)
[2020-10-20 12:00] VITALS: BP 118/50
[2020-10-20] MEDS ORDERED: VANCOMYCIN 750 MG PREMIX 150 ML IV SCH (13:00)
[2020-10-20] MEDS: VANCOMYCIN 750 MG PREMIX 150 ML IV SCH (13:13)
[2020-10-20 16:00] VITALS: BP 131/68
[2020-10-20 16:50] LABS: PLATELET ESTIMATE MARKEDLY DECREASED
[2020-10-20 20:00] VITALS: BP 142/50
[2020-10-20] MEDS ORDERED: CARVEDILOL 6.25 MG TABLET PO NR (21:30)
[2020-10-20] MEDS: ATORVASTATIN CALCIUM 10MG TABLET PO SCH (22:14)
[2020-10-21] VITALS (8 sets, daily range): BP systolic 107–146; BP diastolic 48–81
[2020-10-21] MEDS ORDERED: VANCOMYCIN 500 MG PREMIX 100 ML IV SCH (01:00)
[2020-10-21] MEDS: SODIUM CHLORIDE 0.9% 1,000 ML IV SCH ×3 (03:27→21:39)
[2020-10-21 05:48] LABS: HEMOGLOBIN. 7.2 g/dL (12.0-16.0); MEAN PLATELET VOLUME 8.7 fl (7.4-10.4); RED BLOOD CELL COUNT 2.31 mill/uL (4.2-5.4); RED CELL DISTRIBUTION WIDTH 16.9 % (11.6-14.6)
[2020-10-21] MEDS: VANCOMYCIN 750 MG PREMIX 150 ML IV SCH (06:10)
[2020-10-21] MEDS: AZTREONAM 1 G in DEXTROSE 5% WATER 50 ML IV SCH ×3 (06:10→21:02)
[2020-10-21] MEDS: ACETAMINOPHEN 325MG TABLET PO PRN ×2 (08:39→21:38)
[2020-10-21] MEDS: PANTOPRAZOLE SODIUM 40 MG/VIAL IV SCH (08:40)
[2020-10-21] MEDS: CARVEDILOL 6.25 MG TABLET PO SCH ×2 (08:40→20:45)
[2020-10-21 08:42] LABS: PLATELET 33 x1000/uL (130-400)
[2020-10-21 11:32] LABS: NUCLEATED RED BLOOD CELLS 1 /100 WBC
[2020-10-21 11:33] LABS: PLATELET ESTIMATE MARKEDLY DECREASED
[2020-10-21] MEDS: HYDROCODONE/ACETAMINOPHEN 5/325MG TABLET PO PRN (18:24)
[2020-10-21] MEDS: EPOETIN ALFA-EPBX 10,000 UNIT/ML VIAL SUBCUT SCH (20:45)
[2020-10-21] MEDS: ATORVASTATIN CALCIUM 10MG TABLET PO SCH (20:45)
[2020-10-22] VITALS (11 sets, daily range): BP systolic 101–146; BP diastolic 47–81
[2020-10-22] MEDS: HYDROCODONE/ACETAMINOPHEN 5/325MG TABLET PO PRN ×2 (02:04→18:20)
[2020-10-22] MEDS: VANCOMYCIN 750 MG PREMIX 150 ML IV SCH (02:55)
[2020-10-22] MEDS: AZTREONAM 1 G in DEXTROSE 5% WATER 50 ML IV SCH ×3 (06:05→21:16)
[2020-10-22 07:09] LABS: HEMATOCRIT. 25.8 % (36.0-48.0); HEMOGLOBIN. 8.5 g/dL (12.0-16.0); MEAN CORPUSCULAR HEMOGLOBIN 30.6 pg (28.0-32.0); MEAN CORPUSCULAR VOLUME 92.9 fL (81.0-99.0); MEAN PLATELET VOLUME 9.1 fl (7.4-10.4); RED BLOOD CELL COUNT 2.77 mill/uL (4.2-5.4); RED CELL DISTRIBUTION WIDTH 16.2 % (11.6-14.6)
[2020-10-22 07:37] LABS: CHLORIDE 117 mEq/L (98-107)
[2020-10-22 07:50] LABS: CREATINE KINASE 83 IU/L (26-192)
[2020-10-22] MEDS: SODIUM CHLORIDE 0.9% 1,000 ML IV SCH (07:55)
[2020-10-22 08:15] LABS: PLATELET 39 x1000/uL (130-400)
[2020-10-22] MEDS: ACETAMINOPHEN 325MG TABLET PO PRN ×2 (08:50→21:17)
[2020-10-22] MEDS ORDERED: LEVOFLOXACIN 750MG PREMIX 150 ML IV SCH (09:00)
[2020-10-22] MEDS: PANTOPRAZOLE SODIUM 40 MG/VIAL IV SCH (09:16)
[2020-10-22] MEDS: CARVEDILOL 6.25 MG TABLET PO SCH ×2 (09:16→21:17)
[2020-10-22 11:44] LABS: PLATELET ESTIMATE MARKEDLY DECREASED
[2020-10-22] MEDS ORDERED: AMLODIPINE 5MG TABLET PO NR (12:30)
[2020-10-22] MEDS: ATORVASTATIN CALCIUM 10MG TABLET PO SCH (21:16)
[2020-10-22] MEDS: DIAZEPAM 5 MG TABLET PO PRN (22:54)
[2020-10-23] VITALS: BP 128/63
[2020-10-23] MEDS: HYDROCODONE/ACETAMINOPHEN 5/325MG TABLET PO PRN ×2 (00:55→19:07)
[2020-10-23 04:00] VITALS: BP 126/55
[2020-10-23] MEDS: AZTREONAM 1 G in DEXTROSE 5% WATER 50 ML IV SCH ×3 (05:25→22:37)
[2020-10-23 08:00] VITALS: BP 165/75
[2020-10-23 09:32] LABS: HEMATOCRIT. 25.1 % (36.0-48.0); HEMOGLOBIN. 8.2 g/dL (12.0-16.0); MEAN CORPUSCULAR HEMOGLOBIN 30.5 pg (28.0-32.0); MEAN CORPUSCULAR VOLUME 92.8 fL (81.0-99.0); MEAN PLATELET VOLUME 9.2 fl (7.4-10.4); PLATELET 51 x1000/uL (130-400); RED CELL DISTRIBUTION WIDTH 15.9 % (11.6-14.6)
[2020-10-23] MEDS: ACETAMINOPHEN 325MG TABLET PO PRN (09:50)
[2020-10-23] MEDS: PANTOPRAZOLE SODIUM 40 MG/VIAL IV SCH (09:50)
[2020-10-23] MEDS: CARVEDILOL 6.25 MG TABLET PO SCH ×2 (09:51→21:37)
[2020-10-23] MEDS: AMLODIPINE 5MG TABLET PO SCH (09:52)
[2020-10-23 10:05] LABS: CHLORIDE 114 mEq/L (98-107)
[2020-10-23 12:00] VITALS: BP 111/57
[2020-10-23 12:08] LABS: NUCLEATED RED BLOOD CELLS 1 /100 WBC
[2020-10-23 12:09] LABS: PLATELET ESTIMATE DECREASED
[2020-10-23] MEDS ORDERED: DIATR MEGLU/DIATRIZOATE SOLN 30ML PO SCH ×2 (15:15→20:15)
[2020-10-23 16:00] VITALS: BP 140/63
[2020-10-23 20:00] VITALS: BP 155/74
[2020-10-23] MEDS: ATORVASTATIN CALCIUM 10MG TABLET PO SCH (21:37)
[2020-10-23] MEDS: METRONIDAZOLE 500MG TABLET PO SCH (21:37)
[2020-10-23] MEDS: EPOETIN ALFA-EPBX 10,000 UNIT/ML VIAL SUBCUT SCH (21:38)
[2020-10-23] MEDS: DIAZEPAM 5 MG TABLET PO PRN (23:58)
[2020-10-24] VITALS: BP 138/66
[2020-10-24] MEDS: HYDROCODONE/ACETAMINOPHEN 5/325MG TABLET PO PRN ×2 (01:11→20:39)
[2020-10-24 04:00] VITALS: BP 111/61
[2020-10-24] MEDS: AZTREONAM 1 G in DEXTROSE 5% WATER 50 ML IV SCH ×3 (05:10→21:54)
[2020-10-24 08:00] VITALS: BP 135/73
[2020-10-24] MEDS: METRONIDAZOLE 500MG TABLET PO SCH ×2 (09:11→21:54)
[2020-10-24] MEDS: PANTOPRAZOLE SODIUM 40 MG/VIAL IV SCH (09:11)
[2020-10-24] MEDS: AMLODIPINE 5MG TABLET PO SCH (09:12)
[2020-10-24] MEDS: CARVEDILOL 6.25 MG TABLET PO SCH ×2 (09:12→21:54)
[2020-10-24 12:00] VITALS: BP 130/63
[2020-10-24] MEDS: ACETAMINOPHEN 325MG TABLET PO PRN ×2 (13:35→23:38)
[2020-10-24 15:53] LABS: CHLORIDE 112 mEq/L (98-107)
[2020-10-24 15:55] LABS: HEMATOCRIT. 23.8 % (36.0-48.0); MEAN CORPUSCULAR HEMOGLOBIN 30.9 pg (28.0-32.0); MEAN CORPUSCULAR VOLUME 92.3 fL (81.0-99.0); MEAN PLATELET VOLUME 8.9 fl (7.4-10.4); PLATELET 67 x1000/uL (130-400); RED BLOOD CELL COUNT 2.58 mill/uL (4.2-5.4); RED CELL DISTRIBUTION WIDTH 15.7 % (11.6-14.6)
[2020-10-24 16:00] VITALS: BP 121/57
[2020-10-24 16:57] LABS: NUCLEATED RED BLOOD CELLS 2 /100 WBC; PLATELET ESTIMATE DECREASED
[2020-10-24 20:00] VITALS: BP 110/47
[2020-10-24] MEDS: ATORVASTATIN CALCIUM 10MG TABLET PO SCH (21:54)
[2020-10-24] MEDS: DIAZEPAM 5 MG TABLET PO PRN (23:37)
[2020-10-25] VITALS (7 sets, daily range): BP systolic 105–145; BP diastolic 52–77
[2020-10-25] MEDS: HYDROCODONE/ACETAMINOPHEN 5/325MG TABLET PO PRN ×2 (04:29→14:11)
[2020-10-25] MEDS: AZTREONAM 1 G in DEXTROSE 5% WATER 50 ML IV SCH ×2 (05:20→13:15)
[2020-10-25 06:43] LABS: HEMOGLOBIN. 8.2 g/dL (12.0-16.0); MEAN CORPUSCULAR VOLUME 94.7 fL (81.0-99.0); MEAN PLATELET VOLUME 10.1 fl (7.4-10.4); PLATELET 79 x1000/uL (130-400); RED BLOOD CELL COUNT 2.64 mill/uL (4.2-5.4); RED CELL DISTRIBUTION WIDTH 16.4 % (11.6-14.6)
[2020-10-25 07:26] LABS: CHLORIDE 111 mEq/L (98-107)
[2020-10-25] MEDS: PANTOPRAZOLE SODIUM 40 MG/VIAL IV SCH (09:33)
[2020-10-25] MEDS: CARVEDILOL 6.25 MG TABLET PO SCH (09:33)
[2020-10-25] MEDS: METRONIDAZOLE 500MG TABLET PO SCH (09:33)
[2020-10-25] MEDS: AMLODIPINE 5MG TABLET PO SCH (09:34)
[2020-10-25] MEDS ORDERED: MORPHINE SULFATE 2 MG/ML CPJ (NOT FOR IM USE) IV NR (11:45)
[2020-10-25] MEDS ORDERED: MORPHINE SULFATE 2 MG/ML CPJ (NOT FOR IM USE) IV PRN (12:00)
[2020-10-25 20:06] LABS: PLATELET ESTIMATE DECREASED
== END 2020-10-25 21:35 | DRG 871 ==
LOC: ER 08:56 → 7WST 10:21 → EDBEDREQ 10:25 → EDBEDREQTM 10:25 → EDBEDREQSVC 10:25 → ENRESERV 14:17 → 8WST 15:12 → MICUSO 17:45 → 8WST 10-19 17:45
PROVIDERS: ADMIT Internal Medicine; ATTEND Internal Medicine
PROC: 30233N1 Transfusion of Nonautologous Red Blood Cells into Peripheral Vein, Percutaneous Approach (ICD-10-PCS; principal; 2020-10-21)
DX: A41.9 Sepsis, unspecified organism (principal); J18.9 Pneumonia, unspecified organism; E43 Unspecified severe protein-calorie malnutrition; G93.40 Encephalopathy, unspecified; J44.0 Chronic obstructive pulmonary disease with (acute) lower respiratory infection; N17.9 Acute kidney failure, unspecified; C92.10 Chronic myeloid leukemia, BCR/ABL-positive, not having achieved remission; D61.818 Other pancytopenia; I12.9 Hypertensive chronic kidney disease with stage 1 through stage 4 chronic kidney disease, or unspecified chronic kidney disease; I25.10 Atherosclerotic heart disease of native coronary artery without angina pectoris; K21.9 Gastro-esophageal reflux disease without esophagitis; K57.90 Diverticulosis of intestine, part unspecified, without perforation or abscess without bleeding; M19.90 Unspecified osteoarthritis, unspecified site; N18.9 Chronic kidney disease, unspecified; R73.03 Prediabetes; E78.5 Hyperlipidemia, unspecified; E78.00 Pure hypercholesterolemia, unspecified; G89.4 Chronic pain syndrome; M10.9 Gout, unspecified; R00.0 Tachycardia, unspecified; R26.89 Other abnormalities of gait and mobility; F51.04 Psychophysiologic insomnia; Z20.822 Contact with and (suspected) exposure to COVID-19; I95.9 Hypotension, unspecified; I34.0 Nonrheumatic mitral (valve) insufficiency; R53.81 Other malaise; E86.0 Dehydration; M47.9 Spondylosis, unspecified; D46.9 Myelodysplastic syndrome, unspecified; Z88.0 Allergy status to penicillin; Z79.899 Other long term (current) drug therapy; Z87.01 Personal history of pneumonia (recurrent); Z90.710 Acquired absence of both cervix and uterus; Z91.81 History of falling; Z99.81 Dependence on supplemental oxygen; Z68.27 Body mass index [BMI] 27.0-27.9, adult
CPT/HCPCS: 36415; 71045; 74176; 80048; 80053; 80202; 81003; 82550; 82962; 83036; 83605; 83615; 83880; 84145; 84443; 84484; 84550; 85018; 85025; 85379; 86140; 86850; 86870; 86900; 86920; 93005; 93306; 94640; 97116; 97162; 97530; 99291; A6261; C1893; C9113; J0885; J1956; J2270; J2405; J3370; J3490; J7030; J7040; J7060; P9016; Q9963; U0003

== ENCOUNTER 2021-07-06 21:35 | Inpatient (IN) | payer MEDICARE, MEDICAID ==
[~2021-07-06] VITALS: Ht 152.4 cm; Wt 54.4 kg
[2021-07-06 23:16] LABS: CHLORIDE 111 mEq/L (98-107)
[2021-07-06 23:25] LABS: MEAN CORPUSCULAR HEMOGLOBIN 30.6 pg (28.0-32.0); MEAN CORPUSCULAR VOLUME 104.5 fL (81.0-99.0); RED BLOOD CELL COUNT 1.86 mill/uL (4.2-5.4); RED CELL DISTRIBUTION WIDTH 26.1 % (11.6-14.6)
[2021-07-06] MEDS ORDERED: MORPHINE SULFATE 4 MG/ML CPJ (NOT FOR IM USE) IV STA (23:32)
[2021-07-06] MEDS ORDERED: ONDANSETRON HCL 4MG/2ML INJ IV STA (23:32)
[2021-07-06] MEDS ORDERED: NITROGLYCERIN OINT 1GM/INCH UDPKT TD ONE (23:45)
[2021-07-06 23:47] LABS: HEMATOCRIT. 19.4 % (36.0-48.0); HEMOGLOBIN. 5.7 g/dL (12.0-16.0)
[2021-07-07 00:21] LABS: PLATELET 66 x1000/uL (130-400)
[2021-07-07 00:22] LABS: MEAN PLATELET VOLUME 11.4 fl (7.4-10.4)
[2021-07-07 01:50] LABS: CLARITY URINE CLEAR (CLEAR); COLOR URINE YELLOW (YELLOW); KETONES URINE NEGATIVE (NEGATIVE); LEUKOCYTE ESTERASE URINE TRACE (NEGATIVE); NITRITE URINE NEGATIVE (NEGATIVE); OCCULT BLOOD URINE NEGATIVE (NEGATIVE); PH URINE 5.5 (4.5-8.0); PROTEIN URINE 2+ (NEGATIVE); SPECIFIC GRAVITY URINE 1.021 (1.005-1.030); UROBILINOGEN URINE 0.2 E.U./dL (0.2-1.0)
[2021-07-07] MEDS ORDERED: IOHEXOL-350 100 ML BOTTLE ONE (03:39)
[2021-07-07 04:49] LABS: NUCLEATED RED BLOOD CELLS 3 /100 WBC
[2021-07-07 04:50] LABS: PLATELET ESTIMATE DECREASED
[2021-07-07] MEDS: ACETAMINOPHEN 325MG TABLET PO PRN ×2 (06:28→17:18)
[2021-07-07 10:50] VITALS: BP 127/76
[2021-07-07] MEDS ORDERED: ACETAMINOPHEN 325MG TABLET PO PRN ×2 (11:00)
[2021-07-07] MEDS ORDERED: MAGNESIUM/ALUMINUM HYDROXIDE/SIMETHICONE 30ML UDC PO PRN (11:00)
[2021-07-07] MEDS ORDERED: GUAIFENESIN 200MG/10ML SUGAR FREE UDC PO PRN (11:00)
[2021-07-07] MEDS ORDERED: ONDANSETRON HCL 4MG/2ML INJ IV PRN (11:00)
[2021-07-07] MEDS ORDERED: CLONIDINE 0.1MG TABLET PO PRN (11:00)
[2021-07-07] MEDS ORDERED: ZOLPIDEM TARTRATE 5MG TABLET PO PRN (11:00)
[2021-07-07] MEDS ORDERED: DIPHENHYDRAMINE 50MG/ML VIAL IV PRN (11:00)
[2021-07-07 12:00] VITALS: BP 160/76
[2021-07-07] MEDS ORDERED: T4 PO (13:47)
[2021-07-07] MEDS ORDERED: ATOR10TA69 PO (13:48)
[2021-07-07] MEDS ORDERED: FAMO20TA8 PO (13:49)
[2021-07-07] MEDS: SODIUM CHLORIDE 0.9% INJ 3ML FLUSH IVF SCH ×2 (14:00→21:11)
[2021-07-07] MEDS ORDERED: IPRATROPIUM/ALBUTEROL 0.5-3(2.5)MG/3ML NEB HHN PRN (15:00)
[2021-07-07 16:00] VITALS: BP 176/82
[2021-07-07 16:51] LABS: HEMATOCRIT. 31.9 % (36.0-48.0); HEMOGLOBIN. 10.1 g/dL (12.0-16.0); MEAN CORPUSCULAR HEMOGLOBIN 29.7 pg (28.0-32.0); MEAN CORPUSCULAR VOLUME 93.8 fL (81.0-99.0); MEAN PLATELET VOLUME 8.3 fl (7.4-10.4); RED CELL DISTRIBUTION WIDTH 23.3 % (11.6-14.6)
[2021-07-07 17:13] LABS: PLATELET 38 x1000/uL (130-400)
[2021-07-07 18:28] LABS: PLATELET ESTIMATE DECREASED
[2021-07-07] MEDS: ACETAMINOPHEN WITH CODEINE 300/60MG TABLET PO PRN ×2 (18:52→23:12)
[2021-07-07 20:00] VITALS: BP 144/72
[2021-07-07] MEDS: OMEPRAZOLE 20MG CAPSULE EXTENDED RELEASE PO SCH (21:11)
[2021-07-07 23:51] VITALS: BP 150/74
[2021-07-08 04:00] VITALS: BP 112/77
[2021-07-08] MEDS: SODIUM CHLORIDE 0.9% INJ 3ML FLUSH IVF SCH ×2 (06:15→14:35)
[2021-07-08] MEDS: OMEPRAZOLE 20MG CAPSULE EXTENDED RELEASE PO SCH (06:15)
[2021-07-08 06:47] LABS: HEMATOCRIT 28.2 % (36.0-48.0); HEMOGLOBIN 9.2 g/dL (12.0-16.0); MEAN CORPUSCULAR HEMOGLOBIN 30.1 pg (28.0-32.0); MEAN CORPUSCULAR VOLUME 92.3 fL (81.0-99.0); RED BLOOD CELL COUNT 3.05 mill/uL (4.2-5.4); RED CELL DISTRIBUTION WIDTH 21.9 % (11.6-14.6)
[2021-07-08 08:00] VITALS: BP 151/58
[2021-07-08] MEDS: ACETAMINOPHEN WITH CODEINE 300/60MG TABLET PO PRN ×2 (08:53→14:34)
[2021-07-08 12:00] VITALS: BP 161/78
[2021-07-08 14:11] LABS: PLATELET 32 x1000/uL (130-400)
[2021-07-08 14:46] VITALS: BP 152/79
== END 2021-07-08 17:20 | disposition home or self-care (01) | DRG 841 ==
LOC: ER 21:35 → 8WST 07-07 00:16 → ENRESERV 07-07 07:36
PROVIDERS: ADMIT Internal Medicine; ATTEND Internal Medicine
PROC: 30233N1 Transfusion of Nonautologous Red Blood Cells into Peripheral Vein, Percutaneous Approach (ICD-10-PCS; principal; 2021-07-07)
DX: C93.10 Chronic myelomonocytic leukemia not having achieved remission (principal); D61.818 Other pancytopenia; E78.00 Pure hypercholesterolemia, unspecified; I10 Essential (primary) hypertension; I27.21 Secondary pulmonary arterial hypertension; J44.9 Chronic obstructive pulmonary disease, unspecified; K44.9 Diaphragmatic hernia without obstruction or gangrene; M54.9 Dorsalgia, unspecified; G89.29 Other chronic pain; K57.90 Diverticulosis of intestine, part unspecified, without perforation or abscess without bleeding; Z88.6 Allergy status to analgesic agent; Z88.0 Allergy status to penicillin; Z79.899 Other long term (current) drug therapy
CPT/HCPCS: 36415; 71045; 71275; 80048; 80053; 81003; 83880; 84484; 85025; 85027; 85379; 86850; 86900; 86920; 93005; 99291; J2270; J2405; L1830; P9016; Q9967